=== PATIENT | female | born 1990 | race African-American/Black ===

== ENCOUNTER 2016-11-08 13:38 | Emergency (ER) | payer OTHER ==
[2016-11-08 13:44] VITALS: BP 140/79; PULSE 79; TEMP 97.7; BMI 32.4
--- NOTE | 2016-11-08 14:42 | PDOC ---
History of Present Illness - General Chief Complaint: Edema Stated Complaint: Edema Time Seen by Provider: 11/08/16 14:18 History Source: Patient Exam Limitations: No Limitations - History of Present Illness Initial Comments: 11/08/16 14:41 26 yr female with c/o itching and swelling to both feet and hands since working at [employer] . Pt states she may have allergy to the gloves or the salt in the maltese fries. Pt denies any SOB, no chest pain or urinary complaints. Pt takes no mediations has no allergies Past History - Past Medical History Allergies/Adverse Reactions: Allergies Allergy/AdvReac Type Severity Reaction Status Date / Time No Known Allergies Allergy Verified 11/08/16 13:40 Home Medications: Ambulatory Orders Amoxicillin - [Amoxicillin 500mg Capsule -] 500 mg PO BID #14 capsule 06/01/16 Ibuprofen 600 mg PO Q6H PRN #20 tablet 06/01/16 Hydroxyzine HCl [Atarax -] 25 mg PO TID PRN #21 tablet 11/08/16 Other medical history: none - Immunization History Immunization Up to Date: No - Psycho/Social/Smoking Cessation Hx Anxiety: No Suicidal Ideation: No Smoking History: Never smoked Have you smoked in the past 12 months: No Information on smoking cessation initiated: No Hx Alcohol Use: No Drug/Substance Use Hx: No Substance Use Type: None *Physical Exam - Vital Signs Last Vital Signs Temp Pulse Resp BP Pulse Ox 97.7 F 79 18 140/79 100 11/08/16 13:42 11/08/16 13:42 11/08/16 13:42 11/08/16 13:42 11/08/16 13:42 - Physical Exam General Appearance: Yes: Nourished HEENT: positive: EOMI, JOHN, Normal ENT Inspection, TMs Normal Neck: positive: Supple. negative: Tender Respiratory/Chest: positive: Lungs Clear, Normal Breath Sounds Cardiovascular: positive: Regular Rhythm, Regular Rate Gastrointestinal/Abdominal: positive: Normal Bowel Sounds, Soft Musculoskeletal: positive: Normal Inspection Extremity: positive: Normal Capillary Refill, Normal Inspection, Normal Range of Motion. negative: Swelling Integumentary: positive: Normal Color, Dry, Warm Neurologic: positive: Fully Oriented, Alert, Normal Mood/Affect, Normal Response , Motor Strength 5/5 ED Treatment Course - LABORATORY CBC & Chemistry Diagram: 11/08/16 14:30 11/08/16 14:30 Medical Decision Making - Medical Decision Making 11/08/16 15:12 c/o swelling to hands and feet for one week since working at [employer] pt states she may have allergy to the gloves, had itching and swelling and rash to her hands has since started using vinyl drugs at work with some relief, however pt states she thinks the salt in the fries may have touched her hands causing a reaction. Pt has no medical history no allergies no shortness of breath or chest pain will check basic labs, kidney and liver enzymes, r/o atarax for itching 11/08/16 15:18 *DC/Admit/Observation/Transfer Diagnosis at time of Disposition: Pruritic rash - Discharge Dispostion Disposition: HOME Condition at time of disposition: Good - Prescriptions Prescriptions: Hydroxyzine HCl [Atarax -] 25 mg PO TID PRN #21 tablet PRN Reason: itching - Referrals Referrals: Donell Montoya MD [Primary Care Provider] - - Patient Instructions Additional Instructions: take atarax for itching as prescribed cool water to bathe avoid hot water follow with your doctor in 1-3 days for follow up - Post Discharge Activity Work/School Note: Back to Work
[2016-11-08 14:57] LABS: BASOPHIL 0.4 % (0-2.0); MCH 28.2 pg (25.7-33.7); MCHC 32.4 g/dl (32.0-36.0); MEAN CELL VOLUME 86.8 fl (80-96); MEAN PLT VOLUME 9.5 fl (7.5-11.1); NEUTROPHILS 59.9 % (42.8-82.8); PLATELET COUNT 208 K/MM3 (134-434); RDW 13.8 % (11.6-15.6); WHITE BLOOD COUNT 6.5 K/mm3 (4.0-10.0)
[2016-11-08 15:17] LABS: ALBUMIN 3.5 g/dl (3.4-5.0); ANION GAP 10 (8-16); CALCIUM 8.5 mg/dL (8.5-10.1); CO2 24 mmol/L (21-32); CREATININE 0.7 mg/dL (0.55-1.02); GLUCOSE,RANDOM 93 mg/dL (74-106); SGOT/AST 7 U/L (15-37); SGPT/ALT 12 U/L (12-78)
[2016-11-08 15:18] LABS: ALK PHOS 95 U/L (45-117); BILIRUBIN,TOTAL 0.2 mg/dL (0.2-1.0); TOT PROT 7.1 g/dl (6.4-8.2)
== END 2016-11-08 15:58 | disposition home or self-care (01) ==
LOC: JERFT 13:38
DX: R60.0 Localized edema (principal)
CPT/HCPCS: 36415; 80053; 85025; 86038; 99281-25

== ENCOUNTER 2017-04-09 10:34 | Emergency (ER) | payer OTHER ==
[2017-04-09 10:39] VITALS: BP 139/78; BMI 31.9
[2017-04-09] MEDS ORDERED: DEXAMETHASONE LIQUID 0.5 MG/5 ML 240 ML BULK BOTTLE PO ONE (10:59)
[2017-04-09] MEDS ORDERED: KETOROLAC TROMETHAMINE 60 MG/2 ML VIAL IM ONE (11:00)
[2017-04-09] MEDS ORDERED: PENICILLIN G BENZATHINE 1,200,000 UNIT/2 ML PFS IM ONE (11:00)
[2017-04-09] MEDS ORDERED: DEXAMETHASONE SOD PHOSPHATE 10 MG/1 ML VIAL ONE (11:02)
[2017-04-09] MEDS ORDERED: KETOROLAC TROMETHAMINE 60 MG/2 ML VIAL ONE (11:02)
[2017-04-09] MEDS ORDERED: PENICILLIN G BENZATHINE 2,400,000 UNIT/4 ML PFS ONE (11:03)
[2017-04-09 11:30] VITALS: PULSE 97; TEMP 100.2
--- NOTE | 2017-04-09 11:30 | PDOC ---
History of Present Illness - General Chief Complaint: Cold Symptoms Stated Complaint: SORE THROAT Time Seen by Provider: 04/09/17 10:50 History Source: Patient Exam Limitations: No Limitations - History of Present Illness Initial Comments: 04/09/17 11:02 Patient is a 27-year-old female, no significant medical history currently on no medication. Patient presents with fever, dysphagia. Stray of strep throat states it feels the same. Past Medical History: Denies. Allergies: No known allergies Medications: None Family History: Non-contributory Social History: Denies smoking, alcohol use, or IVDU Review of Systems GENERAL/CONSTITUTIONAL: Fever. No weakness. No weight change. HEAD, EYES, EARS, NOSE AND THROAT: No change in vision. No ear pain or discharge. Throat and dysphasia. CARDIOVASCULAR: No chest pain or shortness of breath. RESPIRATORY: No cough, wheezing, or hemoptysis. GASTROINTESTINAL: No nausea, vomiting, diarrhea or constipation. No rectal bleeding. GENITOURINARY: No dysuria, frequency, or change in urination. MUSCULOSKELETAL: No joint or muscle swelling or pain. No neck or back pain. SKIN AND BREASTS: No rash or easy bruising. NEUROLOGIC: No headache, vertigo, loss of consciousness, or loss of sensation. PSYCHIATRIC: No depression or anxiety. ENDOCRINE: No increased thirst. No abnormal weight change. HEMATOLOGIC/LYMPHATIC: No anemia, easy bleeding, or history of blood clots. ALLERGIC/IMMUNOLOGIC: No hives or skin allergy. No latex allergy. Physical Exam: GENERAL: The patient is awake, alert, and fully oriented, in no acute distress. EYES: Pupils equal, round and reactive to light, extraocular movements intact, sclera anicteric, conjunctiva clear. ENT: Ears normal, nares patent, oropharynx with erythema and exudates. Moist mucous membranes. No uvula deviation NECK: Normal range of motion, right precervical lymphadenopathy, JVD, or masses. LUNGS: Breath sounds equal, clear to auscultation bilaterally. No wheezes, and no crackles. HEART: Regular rate and rhythm, normal S1 and S2 without murmur, rub or gallop. ABDOMEN: Soft, nontender, normoactive bowel sounds. No guarding, no rebound. No masses. No bruising or abrasions RECTAL : Guaiac negative, normal rectal tone. MUSCULOSKELETAL: Normal range of motion, no edema. No clubbing or cyanosis. No cords, erythema, or tenderness. No CVA Tenderness with fist. NEUROLOGICAL: Cranial nerves II through XII grossly intact. Normal speech, normal gait. SKIN: Warm, Dry, normal turgor, no rashes or lesions noted. Past History - Past Medical History Allergies/Adverse Reactions: Allergies Allergy/AdvReac Type Severity Reaction Status Date / Time No Known Allergies Allergy Verified 04/09/17 10:36 Home Medications: Ambulatory Orders NK [No Known Home Medication] 04/09/17 Other medical history: DENIES. - Immunization History Immunization Up to Date: No - Psycho/Social/Smoking Cessation Hx Anxiety: No Suicidal Ideation: No Smoking History: Never smoked Have you smoked in the past 12 months: No Hx Alcohol Use: No Drug/Substance Use Hx: No Substance Use Type: None *Physical Exam - Vital Signs Last Vital Signs Temp Pulse Resp BP Pulse Ox 101.2 F H 108 H 19 139/78 100 04/09/17 10:36 04/09/17 10:36 04/09/17 10:36 04/09/17 10:36 04/09/17 10:36 Medical Decision Making - Medical Decision Making 04/09/17 11:30 A/P: : Patient here for fever, sore throat and dysphasia. Penicillin 1.2M given Toradol 60 mg IM x 1 Decadron 10 mg PO x 1. 04/09/17 11:33 Temp 100.2 Discharge patient home, supportive care. Increase fluids. *DC/Admit/Observation/Transfer Diagnosis at time of Disposition: Streptococcal pharyngitis - Discharge Dispostion Disposition: HOME Condition at time of disposition: Good Admit: No - Referrals Referrals: Donell Montoya MD [Primary Care Provider] - - Patient Instructions Printed Discharge Instructions: DI for Pharyngitis/Tonsillopharyngitis -- Adult Additional Instructions: 1. Increase fluid. 2. Pedialyte or Gatorade. 3. Please change toothbrush within 3 days after antibiotics. 4. Warm saltwater gargles. 5. Please follow up with PMD in 3 days if symptoms not resolving. 6. Please return to the ER unable to drink or eat, increased fever or other concerns
== END 2017-04-09 11:38 | disposition home or self-care (01) ==
LOC: JERFT 10:34
DX: J02.0 Streptococcal pharyngitis (principal)
CPT/HCPCS: 96372; 99281-25

== ENCOUNTER 2017-05-23 12:03 | Emergency (ER) | payer OTHER ==
[2017-05-23 12:08] VITALS: BP 136/77; PULSE 72; TEMP 98.3; BMI 34.1
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
[2017-05-23] MEDS ORDERED: ACETAMINOPHEN 500 MG TABLET (FP) PO ONE (13:23)
[2017-05-23] MEDS ORDERED: ACETAMINOPHEN 500 MG TABLET (FP) ONE (13:27)
[2017-05-23 14:30] LABS: HIV 1 & 2 AB NEGATIVE; HIV 1 AGp24 NEGATIVE
[2017-05-24 06:11] LABS: HEP B SURFACE AB Reactive (.)
== END 2017-05-23 14:41 | disposition home or self-care (01) ==
LOC: JERFT 12:03
DX: J03.00 Acute streptococcal tonsillitis, unspecified (principal); B95.0 Streptococcus, group A, as the cause of diseases classified elsewhere; S30.870A Other superficial bite of lower back and pelvis, initial encounter; W50.3XXA Accidental bite by another person, initial encounter; Y93.89 Activity, other specified; Y92.89 Other specified places as the place of occurrence of the external cause
CPT/HCPCS: 36415; 86704; 86706; 86803; 87070; 87340; 87389; 87430; 99281-25

== ENCOUNTER 2019-02-17 11:43 | Emergency (ER) | payer OTHER | END 2019-02-17 13:30 | disposition home or self-care (01) | LOC: JER 11:43 ==

== ENCOUNTER 2019-05-28 19:07 | Emergency (ER) | payer OTHER ==
[2019-05-28 19:11] VITALS: BP 118/76; PULSE 79; TEMP 99.8; BMI 39.4
[2019-05-28] MEDS ORDERED: DEXAMETHASONE 4 MG TABLET (FP) PO ONE (20:13)
[2019-05-28] MEDS ORDERED: AMOXICILLIN 500 MG CAPSULE (FP) PO ONE (20:13)
--- NOTE | 2019-05-28 20:17 | PDOC ---
History of Present Illness - General Chief Complaint: Sore Throat Stated Complaint: SORE THROAT Time Seen by Provider: 05/28/19 19:49 History Source: Patient Exam Limitations: No Limitations - History of Present Illness Initial Comments: 05/28/19 20:14 HISTORY OF PRESENT ILLNESS: 29-year-old woman who presents to the emergency department for 1 day of throat pain, headache and subjective fevers. Patient reports she has a history of streptococcal pharyngitis and is having similar symptoms. Patient reports change in voice which she describes as a muffled. She denies coughing, nasal congestion or rhinorrhea. No recent travel or sick contacts. PAST MEDICAL HISTORY: Denies past medical history SURGICAL HISTORY: Denies ALLERGIES: No known drug allergies REVIEW OF SYSTEMS General/Constitutional: see HPI HEENT: see HPI Cardiovascular: Denies chest pain or shortness of breath. Respiratory: Denies cough, wheezing, or hemoptysis. Gastrointestinal: Denies nausea, vomiting, diarrhea or constipation. Denies rectal bleeding. Genitourinary: Denies dysuria, frequency, or change in urination. Musculoskeletal: Denies joint or muscle swelling or pain. Denies neck or back pain. Skin and breasts: Denies rash or easy bruising. Neurologic: Denies headache, vertigo, loss of consciousness, or loss of sensation. Psychiatric: Denies depression or anxiety. Endocrine: Denies increased thirst. Denies abnormal weight change. Hematologic/Lymphatic: Denies anemia, easy bleeding, or history of blood clots. Allergic/Immunologic: Denies hives or skin allergy. Denies latex allergy. PHYSICAL EXAM General Appearance: Well-appearing, appropriately dressed. No apparent distress , no intoxication. HEENT: EOMI, PERRLA, normal ENT inspection, normal voice, TMs normal. No conjunctival pallor. No photophobia, scleral icterus. 3+ tonsils. Exudate present. Uvula is midline. Neck: Supple. Trachea midline. No tenderness, rigidity, carotid bruit, stridor , or thyromegaly. (+)anterior cervical lymphadenopathy. Respiratory/Chest: Lungs CTAB. No shortness of breath, chest tenderness, respiratory distress, accessory muscle use. No crackles, rales, rhonchi, stridor , wheezing, dullness Cardiovascular: RRR. S1, S2. No JVD, murmur, bradycardia, tachycardia. Vascular Pulses: Dorsalis-Pedis (R): 2+, Dorsalis-Pedis (L): 2+ Neurologic: tooth polisher II-XII intact. Fully oriented, alert. Appropriate mood/affect. Motor strength 5/5. No appreciable EOM palsy, facial droop or sensory deficit. 05/28/19 20:18 Past History - Past Medical History Allergies/Adverse Reactions: Allergies Allergy/AdvReac Type Severity Reaction Status Date / Time No Known Allergies Allergy Verified 05/28/19 19:11 Home Medications: Ambulatory Orders Amoxicillin/Potassium Clav [Augmentin 875-125 Tablet] 1 each PO BID #20 tablet 05/23/17 Amoxicillin - [Amoxicillin 500mg Capsule -] 500 mg PO BID #19 capsule 05/28/19 COPD: No - Immunization History Immunization Up to Date: No - Suicide/Smoking/Psychosocial Hx Smoking History: Never smoked Have you smoked in the past 12 months: No Information on smoking cessation initiated: No Hx Alcohol Use: No Drug/Substance Use Hx: No Substance Use Type: None *Physical Exam - Vital Signs Last Vital Signs Temp Pulse Resp BP Pulse Ox 99.8 F H 79 19 118/76 99 05/28/19 19:09 05/28/19 19:09 05/28/19 19:09 05/28/19 19:09 05/28/19 19:09 Medical Decision Making - Medical Decision Making 05/28/19 20:16 A/P: 29-year-old woman with pharyngitis Centor score-4 given the high likelihood of bacterial infection and patient frequents streptococcal infection I will treat as a bacterial infection. Patient is refusing testing at this time. Decadron 10 mg orally now Amoxicillin 500 mg orally now Discharge home with prescription for amoxicillin 500 mg to be taken for the next 10 days. I discussed the physical exam findings, ancillary test results and final diagnoses with the patient. I answered all of the patient's questions. The patient was satisfied with the care received and felt comfortable with the discharge plan and treatment plan. The patient will call their primary care physician within 24 hours to arrange follow-up and will return to the Emergency Department with any new, persistent or worsening symptoms. Portions of this note have been documented using voice recognition software. As a result, errors may occur in the lockstitch front edge tape sewer process. Effort has been made to correct all grammatical and lockstitch front edge tape sewer error, but some may have been missed. *DC/Admit/Observation/Transfer Diagnosis at time of Disposition: Pharyngitis Qualifiers: Pharyngitis/tonsillitis etiology: unspecified etiology Qualified Code(s): J02.9 - Acute pharyngitis, unspecified - Discharge Dispostion Disposition: HOME Condition at time of disposition: Stable Decision to Admit order: No - Prescriptions Prescriptions: Amoxicillin - [Amoxicillin 500mg Capsule -] 500 mg PO BID #19 capsule - Referrals Referrals: Macy Mccormick MD [Primary Care Provider] - - Patient Instructions Additional Instructions: Take amoxicillin as prescribed. Salt water garggles. Throw away your toothbrush in 3 days and start using a new toothbrush. No sharing of drinks, utensils or toothbrushes. Take Motrin as directed by lcsw's instructions. Return to ED for worsening fevers, worsening sore throat, chest pain, shortness of breath or any other concerns. - Post Discharge Activity
[2019-05-28] MEDS ORDERED: DEXAMETHASONE SOD PHOSPHATE 10 MG/1 ML VIAL ONE (20:19)
[2019-05-28] MEDS ORDERED: AZITHROMYCIN 500 MG TABLET ONE (20:20)
[2019-05-28] MEDS ORDERED: AMOXICILLIN 250 MG CAPSULE ONE (20:21)
== END 2019-05-28 20:29 | disposition home or self-care (01) ==
LOC: JERFT 19:07
DX: J02.9 Acute pharyngitis, unspecified (principal); B96.89 Other specified bacterial agents as the cause of diseases classified elsewhere
CPT/HCPCS: 99281-25

== ENCOUNTER 2020-05-13 19:07 | Emergency (ER) | payer OTHER ==
[2020-05-13 19:18] VITALS: BP 137/81; PULSE 95; TEMP 98.1; BMI 42.0
--- NOTE | 2020-05-13 20:45 | PDOC ---
History of Present Illness - General Chief Complaint: Sore Throat Stated Complaint: SORE THROAT Time Seen by Provider: 05/13/20 19:14 - History of Present Illness Initial Comments: 05/13/20 20:43 30-year-old female without comorbidities presents for sore throat x1 day no systemic symptoms no cough Past History - Medical History Allergies/Adverse Reactions: Allergies Allergy/AdvReac Type Severity Reaction Status Date / Time No Known Allergies Allergy Verified 05/28/19 19:11 Home Medications: Ambulatory Orders Amoxicillin/Potassium Clav [Augmentin 875-125 Tablet] 1 each PO BID #20 tablet 05/23/17 Amoxicillin - [Amoxicillin 500mg Capsule -] 500 mg PO BID #19 capsule 05/28/19 Cetirizine HCl [Zyrtec -] 10 mg PO DAILY #30 tablet 05/13/20 COPD: No - Reproductive History Is Patient Now?: No - Immunization History Immunization Up to Date: No - Psycho-Social/Smoking History Smoking History: Never smoked Have you smoked in the past 12 months: No - Substance Abuse Hx (Audit-C & DAST Scrn) How often the patient has a drink containing alcohol: Never Score: In Men: 4 or > Positive; In Women: 3 or > Positive: 0 Screen Result (Pos requires Nsg. Audit-10AR): Negative Review of Systems - Review of Systems Constitutional: No: Fever HEENTM: Yes: Throat Pain *Physical Exam - Vital Signs Last Vital Signs Temp Pulse Resp BP Pulse Ox 98.1 F 95 H 20 137/81 100 05/13/20 19:13 05/13/20 19:13 05/13/20 19:13 05/13/20 19:13 05/13/20 19:13 - Physical Exam 05/13/20 20:44 GENERAL: The patient is awake, alert, and fully oriented, in no acute distress. HEAD: Normal with no signs of trauma. EYES: sclera anicteric, conjunctiva clear. ENT: Ears normal tympanic membranes normal oropharynx clear uvula midline NECK: Normal range of motion LUNGS: Breath sounds equal, clear to auscultation bilaterally. No wheezes, and no crackles. HEART: S1 and S2 without murmur, rub or gallop. ABDOMEN: Soft, nontender, normoactive bowel sounds. No guarding, no rebound. No masses. EXTREMITIES: Normal range of motion, no edema. No clubbing or cyanosis. No cords, erythema, or tenderness. NEUROLOGICAL: Cranial nerves II through XII grossly intact. PSYCH: Normal mood, normal affect. SKIN: Warm, Dry, normal turgor, no rashes or lesions noted. Medical Decision Making - Medical Decision Making 05/13/20 20:44 Benign examination most likely allergic pharyngitis possibly viral we will try a course of an antihistamine follow-up with primary care physician I have reviewed the pathophysiology with the patient. They are in agreement with the treatment plan all questions were answered to their satisfaction. Und erstanding for follow-up without fail was also conveyed to the patient. Again they are in agreement. Discharge - Discharge Information Problems reviewed: Yes Clinical Impression/Diagnosis: Allergic pharyngitis Condition: Stable Disposition: HOME - Admission No - Follow up/Referral Referrals: Macy Mccormick MD [Primary Care Provider] - - Patient Discharge Instructions Additional Instructions: Return to the emergency room for worsening symptoms and without fail follow-up with your primary care physician in 1 to 2 days for further evaluation and treatment options. Please take the Zyrtec as directed 1 tablet daily. Warm salt water gargles will also help with your throat pain. - Post Discharge Activity
== END 2020-05-13 22:35 | disposition home or self-care (01) ==
LOC: JER 19:07 → JERFT 19:07
DX: J02.8 Acute pharyngitis due to other specified organisms (principal)
CPT/HCPCS: 87070; 87077; 87880; 99283-25

== ENCOUNTER 2022-07-09 13:52 | Inpatient (IN) | payer OTHER ==
[2022-07-09] MEDS ORDERED: LABETALOL HCL 5 MG/1 ML (100MG/20 ML VIAL) ONE (14:24)
[2022-07-09] MEDS ORDERED: LABETALOL HCL 5 MG/1 ML (100MG/20 ML VIAL) IVPUSH ONE (14:59)
[2022-07-09] MEDS ORDERED: LABETALOL HCL 5 MG/1 ML (100MG/20 ML VIAL) IVPUSH PRN ×2 (14:59)
[2022-07-09] MEDS ORDERED: BETAMET ACET/BETAMET NA PH 30 MG/5 ML VIAL IM ONE (14:59)
[2022-07-09] MEDS ORDERED: hydrALAZINE HCL 20 MG/ML VIAL IVPUSH PRN (14:59)
[2022-07-09] MEDS: ELECTROLYTE-148 SOLN 1,000 ML IV SCH ×2 (15:10→22:00)
[2022-07-09 15:19] LABS: BASO % 0.2 % (0-2.0); HEMOGLOBIN 10.9 GM/dL (10.7-15.3); LYMPH % 14.8 % (8-40); MCHC 32.1 g/dl (32.0-36.0); MEAN CELL VOLUME 84.1 fl (80-96); MEAN PLT VOLUME 9.5 fl (7.5-11.1); MONO % 6.1 % (3.8-10.2); NEUT % 78.9 % (42.8-82.8); PLATELET COUNT 252 10^3/uL (134-434); RBC 4.05 M/mm3 (3.60-5.2); RDW 15.3 % (11.6-15.6); WHITE BLOOD COUNT 15.2 K/mm3 (4.0-10.0)
[2022-07-09 15:32] LABS: INR 0.97 (0.83-1.09); PROTHROMBIN TIME (PATIENT) 11.2 SEC (9.7-13.0)
[2022-07-09 15:34] LABS: ACTIVATED PTT 24.9 SECONDS (25.2-36.5)
[2022-07-09 15:36] VITALS: BMI 42.4
[2022-07-09 16:01] LABS: ALBUMIN 3.2 g/dl (3.4-5.0); BLOOD UREA NITROGEN 7.9 mg/dL (7-18); CALCIUM 9.4 mg/dL (8.5-10.1)
[2022-07-09 16:04] LABS: CREATININE 0.6 mg/dL (0.55-1.3)
[2022-07-09 16:05] LABS: BILIRUBIN,TOTAL 0.2 mg/dL (0.2-1); TOT PROT 7.4 g/dl (6.4-8.2)
[2022-07-09 16:55] LABS: HIV INTERPRETATION NEGATIVE (NEGATIVE)
[2022-07-09 17:17] LABS: METHADONE, UR NEGATIVE (NEGATIVE); PHENCYCLIDINE,URINE NEGATIVE (NEGATIVE); URINE BARBITURATES NEGATIVE (NEGATIVE); URINE BENZODIAZEPINES NEGATIVE (NEGATIVE)
[2022-07-09 17:18] LABS: OPIATES, URI NEGATIVE (NEGATIVE)
[2022-07-09 17:24] LABS: COCAINE, UR NEGATIVE (NEGATIVE); URINE AMPHETAMINES NEGATIVE (NEGATIVE)
[2022-07-09] MEDS ORDERED: LABETALOL HCL 200 MG TABLET (FP) ONE (17:54)
[2022-07-09] MEDS: LABETALOL HCL 200 MG TABLET (FP) PO PRN (18:05)
[2022-07-09] MEDS ORDERED: metFORMIN HCL 500 MG TABLET (FP) PO ONE (18:57)
[2022-07-09] MEDS: valACYclovir HCL 500 MG TABLET (FP) PO SCH (22:00)
[2022-07-10] MEDS ORDERED: ACETAMINOPHEN 325 MG TABLET (FP) ONE (01:13)
[2022-07-10] MEDS ORDERED: ACETAMINOPHEN 325 MG TABLET (FP) PO ONE (01:15)
[2022-07-10] MEDS ORDERED: LABETALOL HCL 200 MG TABLET (FP) ONE ×2 (05:21→11:45)
[2022-07-10] MEDS: LABETALOL HCL 200 MG TABLET (FP) PO PRN ×3 (06:00→11:44)
[2022-07-10] MEDS: ELECTROLYTE-148 SOLN 1,000 ML IV SCH (14:00)
[2022-07-10] MEDS ORDERED: morphine SULFATE/PF 1 MG/2 ML (2cc Syringe - QUVA) ONE (15:48)
[2022-07-10] MEDS ORDERED: OXYTOCIN 20 UNITS in 0.9% NS 20 UNIT/1,000 ML INFUS.BAG IV ONE ×2 (16:27→23:10)
[2022-07-10 16:47] LABS: CORD HCO3 26.5 mmHg (20-29); CORD PCO2 53.8 mmHg (30-78)
[2022-07-10 17:14] LABS: CORD HCO3 27.4 mmHg (20-29); CORD PCO2 62.3 mmHg (30-78); CORD pH 7.261 (7.14-7.44)
[2022-07-10] MEDS ORDERED: METHYLERGONOVINE MALEATE 0.2 MG/1 ML AMP IM PRN (17:14)
[2022-07-10] MEDS ORDERED: SENNOSIDES/DOCUSATE COMBO (SENNA PLUS) TABLET (UD) PO PRN (17:14)
[2022-07-10] MEDS ORDERED: ONDANSETRON 4 MG/2 ML VIAL IVPUSH PRN (17:19)
[2022-07-10] MEDS ORDERED: morphine SULFATE/PF 1 MG/2 ML (2cc Syringe - QUVA) EP ONE (17:19)
[2022-07-10] MEDS ORDERED: ACETAMINOPHEN 1000 MG/100 ML BAG IVPB PRN (17:20)
[2022-07-10] MEDS ORDERED: MAGNESIUM 4GM/H20 - 4 GM/100 ML IVPB IVPB ONE (18:10)
[2022-07-10] MEDS: MAGNESIUM 4GM/H20 - 4 GM/100 ML IVPB IVPB SCH (18:15)
[2022-07-10] MEDS ORDERED: MAGNESIUM SULFATE 20GM/500ML - 20 GM/500 ML INFUS.BAG ONE (18:35)
[2022-07-10] MEDS: MAGNESIUM SULFATE 20GM/500ML - 20 GM/500 ML INFUS.BAG IVPB SCH (18:45)
[2022-07-10] MEDS: OXYTOCIN 20 UNITS in 0.9% NS 20 UNIT/1,000 ML INFUS.BAG IV SCH (23:00)
[2022-07-11] MEDS ORDERED: ceFAZolin SODIUM 1 GM VIAL ONE ×2 (00:45→08:20)
[2022-07-11] MEDS ORDERED: LABETALOL HCL 200 MG TABLET (FP) ONE ×2 (00:56→06:32)
[2022-07-11] MEDS: valACYclovir HCL 500 MG TABLET (FP) PO SCH ×2 (01:30→21:30)
[2022-07-11] MEDS ORDERED: oxyCODONE HCL 5 MG TABLET PO PRN (04:14)
[2022-07-11] MEDS ORDERED: MAGNESIUM SULFATE 20GM/500ML - 20 GM/500 ML INFUS.BAG ONE (06:03)
[2022-07-11] MEDS: LABETALOL HCL 200 MG TABLET (FP) PO PRN ×3 (06:15→22:06)
[2022-07-11] MEDS ORDERED: OXYTOCIN 20 UNITS in 0.9% NS 20 UNIT/1,000 ML INFUS.BAG IV ONE (06:46)
[2022-07-11 07:42] LABS: BASO % 0.3 % (0-2.0); EOS % 0.1 % (0-4.5); HEMATOCRIT 31.2 % (32.4-45.2); HEMOGLOBIN 10.1 GM/dL (10.7-15.3); LYMPH % 15.1 % (8-40); MCH 27.4 pg (25.7-33.7); MCHC 32.4 g/dl (32.0-36.0); MEAN CELL VOLUME 84.6 fl (80-96); MEAN PLT VOLUME 8.9 fl (7.5-11.1); MONO % 7.9 % (3.8-10.2); NEUT % 76.6 % (42.8-82.8); PLATELET COUNT 179 10^3/uL (134-434); RBC 3.69 M/mm3 (3.60-5.2); RDW 15.7 % (11.6-15.6); WHITE BLOOD COUNT 11.8 K/mm3 (4.0-10.0)
[2022-07-11] MEDS: CEFAZOLIN 1 GM in DEXTROSE 5%-WATER - 50 ML IVPB SCH ×3 (08:24→15:42)
[2022-07-11 08:55] LABS: CALCIUM 8.1 mg/dL (8.5-10.1); CREATININE 0.5 mg/dL (0.55-1.3)
[2022-07-11 08:56] LABS: BLOOD UREA NITROGEN 4.9 mg/dL (7-18)
[2022-07-11 08:57] LABS: TOT PROT 5.6 g/dl (6.4-8.2)
[2022-07-11 08:58] LABS: BILIRUBIN,TOTAL 0.2 mg/dL (0.2-1)
[2022-07-11 09:05] LABS: ALBUMIN 2.5 g/dl (3.4-5.0)
[2022-07-11] MEDS: FERROUS SO4 325 MG TABLET (FP) PO SCH ×2 (10:26→17:19)
[2022-07-11] MEDS: PRENATAL VITAMINS W/ FOLIC ACID TABLET (FP) PO SCH (10:26)
[2022-07-11] MEDS ORDERED: ACETAMINOPHEN INJECTION 100 ML IVPB ONE (13:36)
[2022-07-11] MEDS ORDERED: ACETAMINOPHEN 325 MG TABLET (FP) PO PRN (17:14)
[2022-07-11] MEDS ORDERED: BISACODYL 10 MG SUPP.RECT RC PRN (17:14)
[2022-07-11] MEDS: IBUPROFEN 600 MG TABLET (FP) PO PRN (21:00)
[2022-07-11] MEDS: SIMETHICONE 80 MG TAB.CHEW (FP) PO PRN (21:05)
[2022-07-11] MEDS: MAGNESIUM SULFATE 20GM/500ML - 20 GM/500 ML INFUS.BAG IVPB SCH (21:56)
[2022-07-11] MEDS: MAGNESIUM 4GM/H20 - 4 GM/100 ML IVPB IVPB SCH (21:56)
[2022-07-11] MEDS: ELECTROLYTE-148 SOLN 1,000 ML IV SCH (21:56)
[2022-07-11] MEDS: OXYTOCIN 20 UNITS in 0.9% NS 20 UNIT/1,000 ML INFUS.BAG IV SCH (21:56)
[2022-07-12] MEDS: oxyCODONE HCL 5 MG TABLET PO PRN (06:00)
[2022-07-12] MEDS: FERROUS SO4 325 MG TABLET (FP) PO SCH ×2 (08:04→17:00)
[2022-07-12] MEDS: LABETALOL HCL 200 MG TABLET (FP) PO PRN (08:34)
[2022-07-12] MEDS ORDERED: LABETALOL HCL 200 MG TABLET (FP) PO PRN (09:03)
[2022-07-12] MEDS: SIMETHICONE 80 MG TAB.CHEW (FP) PO PRN (09:27)
[2022-07-12] MEDS: PRENATAL VITAMINS W/ FOLIC ACID TABLET (FP) PO SCH (09:27)
[2022-07-12] MEDS: IBUPROFEN 600 MG TABLET (FP) PO PRN (09:36)
[2022-07-12] MEDS ORDERED: NIFEdipine E.R. 30 MG TABLET PO SCH (10:00)
[2022-07-12] MEDS: ELECTROLYTE-148 SOLN 1,000 ML IV SCH (15:10)
[2022-07-12] MEDS ORDERED: LABETALOL HCL 200 MG TABLET (FP) PO STA (16:38)
[2022-07-12] MEDS: valACYclovir HCL 500 MG TABLET (FP) PO SCH (22:44)
[2022-07-13] MEDS: SIMETHICONE 80 MG TAB.CHEW (FP) PO PRN (02:21)
[2022-07-13] MEDS: oxyCODONE HCL 5 MG TABLET PO PRN (02:21)
[2022-07-13] MEDS ORDERED: LABETALOL HCL 200 MG TABLET (FP) PO SCH (06:00)
[2022-07-13] MEDS: LABETALOL HCL 200 MG TABLET (FP) PO SCH ×2 (06:07→17:06)
[2022-07-13 08:19] LABS: BASO % 0.2 % (0-2.0); EOS % 0.6 % (0-4.5); HEMATOCRIT 30.7 % (32.4-45.2); HEMOGLOBIN 10.2 GM/dL (10.7-15.3); LYMPH % 23.1 % (8-40); MCHC 33.2 g/dl (32.0-36.0); MEAN CELL VOLUME 84.3 fl (80-96); MEAN PLT VOLUME 8.6 fl (7.5-11.1); NEUT % 69.1 % (42.8-82.8); PLATELET COUNT 202 10^3/uL (134-434); RBC 3.64 M/mm3 (3.60-5.2); RDW 15.3 % (11.6-15.6); WHITE BLOOD COUNT 9.3 K/mm3 (4.0-10.0)
[2022-07-13] MEDS: NIFEdipine E.R 60 MG TABLET PO SCH (08:46)
[2022-07-13] MEDS: FERROUS SO4 325 MG TABLET (FP) PO SCH ×2 (08:46→17:06)
[2022-07-13 09:12] LABS: ALBUMIN 2.7 g/dl (3.4-5.0); CALCIUM 8.9 mg/dL (8.5-10.1)
[2022-07-13 09:15] LABS: CREATININE 0.4 mg/dL (0.55-1.3)
[2022-07-13 09:17] LABS: BILIRUBIN,TOTAL 0.4 mg/dL (0.2-1); TOT PROT 6.5 g/dl (6.4-8.2)
[2022-07-13] MEDS: PRENATAL VITAMINS W/ FOLIC ACID TABLET (FP) PO SCH (09:30)
[2022-07-13] MEDS: IBUPROFEN 600 MG TABLET (FP) PO PRN (17:06)
[2022-07-13 17:32] VITALS: RESP 16
[2022-07-13] MEDS: valACYclovir HCL 500 MG TABLET (FP) PO SCH (21:02)
[2022-07-14] MEDS: LABETALOL HCL 200 MG TABLET (FP) PO SCH (05:33)
[2022-07-14] MEDS: SIMETHICONE 80 MG TAB.CHEW (FP) PO PRN (05:34)
[2022-07-14 05:58] VITALS: TEMP 98.3
[2022-07-14] MEDS: NIFEdipine E.R 60 MG TABLET PO SCH (08:59)
[2022-07-14] MEDS: PRENATAL VITAMINS W/ FOLIC ACID TABLET (FP) PO SCH (08:59)
[2022-07-14] MEDS: FERROUS SO4 325 MG TABLET (FP) PO SCH (08:59)
[2022-07-14 14:55] VITALS: BP 116/61; PULSE 91
[2022-07-14] MEDS ORDERED: NIFEdipine E.R. 30 MG TABLET PO SCH (22:00)
== END 2022-07-14 18:10 | disposition home or self-care (01) | DRG 540 ==
LOC: JDEL 13:52 → JLDR 14:22 → J3W 07-11 14:49
PROVIDERS: ADMIT Obstetrics & Gynecology; ATTEND Obstetrics & Gynecology
PROC: 10D00Z1 Extraction of Products of Conception, Low, Open Approach (ICD-10-PCS; principal; 2022-07-10)
PROC: 0DNU0ZZ Release Omentum, Open Approach (ICD-10-PCS; 2022-07-10)
DX: O34.211 Maternal care for low transverse scar from previous cesarean delivery (principal); O99.214 Obesity complicating childbirth; O13.4 Gestational [pregnancy-induced] hypertension without significant proteinuria, complicating childbirth; O99.892 Other specified diseases and conditions complicating childbirth; O14.95 Unspecified pre-eclampsia, complicating the puerperium; E66.01 Morbid (severe) obesity due to excess calories; N73.6 Female pelvic peritoneal adhesions (postinfective); O24.425 Gestational diabetes mellitus in childbirth, controlled by oral hypoglycemic drugs; Z3A.36 36 weeks gestation of pregnancy; Z37.0 Single live birth; O75.89 Other specified complications of labor and delivery; I95.1 Orthostatic hypotension; Z79.84 Long term (current) use of oral hypoglycemic drugs
CPT/HCPCS: 36415; 36600; 59025; 71046-TC-FY; 80053; 80307; 82570; 82803; 82962; 82977; 83010; 83735; 84156; 84550; 85025; 85610; 85730; 86780; 86850; 86900; 86901; 86922; 87389; 88307-TC; 96372; C9803-CS; U0003; U0005

== ENCOUNTER 2023-01-02 09:56 | Emergency (ER) | payer OTHER ==
[2023-01-02 10:03] VITALS: BP 147/84; PULSE 88; RESP 18; TEMP 98.3; BMI 42.2
== END 2023-01-02 10:40 | disposition home or self-care (01) ==
LOC: JERFT 09:56
DX: R07.0 Pain in throat (principal); R05.9 Cough, unspecified; R09.81 Nasal congestion; J30.1 Allergic rhinitis due to pollen
CPT/HCPCS: 87651; 99283-25